=== PATIENT | female | born 1985 | race Caucasian/White ===

== ENCOUNTER 2024-07-13 09:26 | Outpatient (AMB) | payer OTHER, SELFPAY ==
--- NOTE | 2024-07-13 10:02 | MHC.AM.SUB ---
Vital Signs 07/13/24 10:38 BP 100/62 Blood Pressure Location Rt brachial Position Sitting Respiration 16 Pulse 75 Pulse Source Pulse Oximeter Pulse Oximetry (%) 96 Oxygen Delivery Method Room Air Intake Visit Reasons: Intake Allergies No Known Allergies Allergy (Verified 07/13/24 10:18) HPI HPI Intake: Details: Patient presents for intake and evaluation as a walk in Currently on methadone and hoping to transition to buprenorphine Current dose of methadone 90mg Previously on buprenorphine --and transitioned methadone Last opiate use June 01 IVDU cocaine use (smoking) may 27 no alcohol 4 lifetime overdoses longest period in recovery 4 years 2010 suboxone strong family history of addiction opiates at age 21 History PTSD, depression PCP is managing medications Lexapro 20mg QD Wellbutrin 300mg QD Traz 200mg Hydrox 50mg PRN Gabapentin 400mg TID NKDA no providers in place Social -living in [place] at [facility] -limited supports -2 children 5 and 9 yo Medical -Hep C with no VL (cleared) -no BC -PCP in [place] (joanna MUNOZ ) Review of Systems Const Reports as per HPI and Reports no additional complaints Physical Exam Vital Signs: Last Vital Signs Pulse 75 07/13/24 10:38 Resp 16 07/13/24 10:38 BP 100/62 07/13/24 10:38 Pulse Ox 96 07/13/24 10:38 Oxygen Delivery Method Room Air 07/13/24 10:38 Const General: cooperative, healthy appearing, no acute distress and well groomed Nutritional Appearance: average body habitus Orientation/consciousness: patient oriented x3 Limitations: no limitations Skin General skin exam: no rashes or lesions noted Neuro General: patient oriented x3 Results AMB 14 Panel Urine Drug Screen Urine Marijuana (THC) Negative Last Edit by Sindy Archuleta on 07/13/24 10:40 Urine Cocaine Negative Last Edit by Sindy Archuleta on 07/13/24 10:40 Urine Morphine Negative Last Edit by Sindy Archuleta on 07/13/24 10:40 Urine Methamphetamine Negative Last Edit by Sindy Archuleat on 07/13/24 10:40 Urine Amphetamine Negative Last Edit by Sindy Archuleta on 07/13/24 10:40 Urine Benzodiazepine Negative Last Edit by Sindy Archuleta on 07/13/24 10:40 Urine Barbiturates Negative Last Edit by Sindy Archuleta on 07/13/24 10:40 Urine Methadone Positive Last Edit by Sindy Archuleta on 07/13/24 10:40 Urine Buprenorphine Negative Last Edit by Sindy Archuleta on 07/13/24 10:40 Urine Tricyclic Antidepressant Negative Last Edit by Sindy Archuleta on 07/13/24 10:40 Urine MDMA Negative Last Edit by Sindy Archuleta on 07/13/24 10:40 Urine Oxycodone Negative Last Edit by Sindy Archuleta on 07/13/24 10:40 Urine Phencyclidine Negative Last Edit by Sindy Archuleta on 07/13/24 10:40 Urine Propoxyphene Negative Last Edit by Sindy Archuleta on 07/13/24 10:40 AMB Test Urine AMB Test Urine Negative Last Edit by Sindy Archuleta on 07/13/24 10:40 Results Reviewed Results Reviewed: Laboratory Last Values [facility] Negative 07/13/24 10:36 POC Urine Buprenorphine Negative 07/13/24 10:36 POC Urine Morphine Negative 07/13/24 10:36 POC Urine Oxycodone Negative 07/13/24 10:36 POC Urine Methadone Positive 07/13/24 10:36 POC Urine Propoxyphene Negative 07/13/24 10:36 POC Urine Barbiturates Negative 07/13/24 10:36 POC U Tricyclic Antidpr Negative 07/13/24 10:36 POC Urine PCP Negative 07/13/24 10:36 POC Ur Amphetamines Negative 07/13/24 10:36 POC Ur Methamphetamine Negative 07/13/24 10:36 POC Urine MDMA Negative 07/13/24 10:36 POC Ur Benzodiazepine Negative 07/13/24 10:36 POC Urine Cocaine Negative 07/13/24 10:36 POC Ur Marijuana (THC) Negative 07/13/24 10:36 Assessment & Plan Assessment & Plan (1) Opioid use disorder: Code(s): F11.90 - Opioid use, unspecified, uncomplicated Category: Medical Plan: reviewed plan for transition from methadone to buprenorphine provided with written instrucitons she will check in with [facility] and let us know when to send rx labs ordered --need to be completed Orders: Orders Complete Blood Count Auto Diff 07/13/24 F11.90 - Opioid use, unspecified, uncomplicated HIV Ab/Ag 07/13/24 - Opioid use, unspecified, uncomplicated Hepatitis B Profile 07/13/24 - Opioid use, unspecified, uncomplicated Comprehensive Met. Panel 07/13/24 - Opioid use, unspecified, uncomplicated Hepatitis C Antibody Reflex 07/13/24 - Opioid use, unspecified, uncomplicated Hepatitis A IgG 07/13/24 - Opioid use, unspecified, uncomplicated AMB HCG Urine Test 07/13/24 - Opioid use, unspecified, uncomplicated AMB 14 Panel Urine Drug Screen 07/13/24 Z51.81 - Encounter for therapeutic drug level monitoring
[2024-07-13 10:38] VITALS: BP 100/62; PULSE 75; RESP 16; O2SAT 96
== END 2024-07-13 10:31 | disposition home or self-care (01) ==
PROVIDERS: Visit Provider Nurse Practitioner Psychiatric/Mental Health
DX: F11.90 Opioid use, unspecified, uncomplicated (principal)
CPT/HCPCS: 99204

== ENCOUNTER → 2024-07-13 09:26 | Outpatient (BNVA) | payer OTHER, SELFPAY | PROVIDERS: Visit Provider Nurse Practitioner Psychiatric/Mental Health | DX: F11.20 Opioid dependence, uncomplicated (principal) | CPT/HCPCS: 80307; 81025 ==

== ENCOUNTER 2024-07-21 08:57 | Outpatient (REF) | payer OTHER, SELFPAY ==
[2024-07-21 10:56] LABS: MANUAL DIFF FLAG NO
[2024-07-21 11:22] LABS: Basophils Absolute Auto 0.1 X10*3/uL (0.0-0.2); Basophils Percent Auto 0.8 % (0-2); Eosinophils Absolute Auto 0.1 X10*3/uL (0.0-0.4); Eosinophils Percent Auto 0.9 % (0-4); Hematocrit 35.7 % (37.0-47.0); Hemoglobin 11.8 g/dl (12.0-16.0); Imm Gran Abs Auto 0.05 X10*3/uL (0.00-0.03); Imm Gran Pct Auto 0.8 % (0.0-0.4); Lymphocytes Absolute Auto 2.7 X10*3/uL (1.2-4.9); Lymphocytes Percent Auto 40.2 % (20-40); Mean Corpuscular HGB Conc 33.1 g/dl (31.0-35.0); Mean Corpuscular Hemoglobin 29.4 pg (27.0-33.0); Mean Corpuscular Volume 88.8 fL (80.0-98.0); Mean Platelet Volume 8.4 fL (9.4-12.3); Monocytes Absolute Auto 0.7 X10*3/uL (0.1-1.2); Monocytes Percent Auto 10.1 % (2-11); Neutrophils Absolute Auto 3.2 x10*3/uL (2.0-8.3); Neutrophils Percent Auto 47.2 % (45-73); Platelet Count 229 X10*3/uL (160-400); Red Blood Count 4.02 X10*6/uL (4.20-5.50); Red Cell Distribution Width 12.8 % (11.0-16.0); White Blood Count 6.7 X10*3/uL (4.8-10.8)
[2024-07-21 11:38] LABS: Alanine Aminotransferase 30 U/L (0-31); Albumin Level 4.2 g/dL (3.5-5.0); Alkaline Phosphatase 50 U/L (39-117); Anion Gap 11 (12-20); Aspartate Amino Transferase 24 U/L (5-31); Bilirubin Total 0.5 mg/dL (0.0-1.0); Blood Urea Nitrogen 10 mg/dL (9-16); Calcium 9.4 mg/dL (8.4-10.2); Carbon Dioxide 28 mmol/L (22-29); Chloride 106 mmol/L (96-108); Estimated Glomerular Filt Rate > 60; Glucose Random 87 mg/dL (60-115); Potassium 4.8 mmol/L (3.3-5.1); Sodium 140 mmol/L (135-145); Total Protein 7.1 g/dL (6.5-8.0)
[2024-07-21 12:00] LABS: Hepatitis A Antibody IgG REACTIVE (Nonreactive); ~Hepatitis A Antibody IgG 6.92 S/CO (0.00-0.99)
[2024-07-21 12:07] LABS: HBS Num1 3.59 mIU/mL (0-7.99); HBsAGNum1 0.31 S/CO (0.00-0.99); HIV AB/AG Nonreactive (Nonreactive); HIV Num 1 0.23 S/CO (0.00-0.99); Hepatitis B Core Antibody Nonreactive (Nonreactive); Hepatitis B Surface Antigen Negative (Negative); ~HepC Num1 11.56 S/CO (0.00-0.79); ~Hepatitis B Surface Antibody NONREACTIVE (Nonreactive); ~Hepatitis C Antibody Reactive (Nonreactive)
[2024-07-23 10:33] LABS: HCV Log PCR <1.18 NOT DETECTED Log IU/mL (NOT DETECTED); HepC Viral Load <15 NOT DETECTED IU/mL (NOT DETECTED)
== END 2024-07-21 08:58 | disposition home or self-care (01) ==
LOC: HO.LAB 08:57
PROVIDERS: Visit Provider Nurse Practitioner Psychiatric/Mental Health
DX: F11.20 Opioid dependence, uncomplicated (principal); F43.10 Post-traumatic stress disorder, unspecified
CPT/HCPCS: 36415; 80053; 85025; 86704; 86706; 86708; 86803; 87340; 87389; 87522

== ENCOUNTER 2024-07-21 08:57 | Outpatient (AMB) | payer OTHER, SELFPAY ==
--- NOTE | 2024-07-21 09:29 | A.OFFVISCC_ITS ---
Intake Visit Reasons: MAT Office Allergies No Known Allergies Allergy (Verified 07/13/24 10:18) HPI HPI MAT Office: Details: Patient presents for follow up Reports she is on day 5 of transition 2mg BID today tolerating transition without issue will order 8mg films today with plan for up tp 8mg TID once methadone is done Reporting incresae in anxiety sx flashbacks, intrusive thoughts and memories, difficulty falling asleep tearful reviewed medications --open to risperdal trial 1/2-1 tab BID PRN Review of Systems Const Reports as per HPI Physical Exam Const General: cooperative, healthy appearing, anxious and well groomed Nutritional Appearance: average body habitus Orientation/consciousness: patient oriented x3 Limitations: no limitations Neuro General: patient oriented x3 Assessment & Plan Assessment & Plan (1) Opioid use disorder: Code(s): F11.90 - Opioid use, unspecified, uncomplicated Category: Medical Plan: * transition to 8mg films over the weekend * encouraged to call with any issues or concerns (2) Post traumatic stress disorder (PTSD): Code(s): F43.10 - Post-traumatic stress disorder, unspecified Category: Medical Plan: * risperdal 0.5mg take 1/2 to one tab twice a day as needed --side effects, goals of treatment reviewed Medications: New risperidone (Risperdal) take 1/2 -1 tab orally 2 times a day PRN; 10 tabs 0RF anxiety buprenorphine-naloxone 8-2 mg (Suboxone) 1 film buccal TID 42 ea 0RF
== END 2024-07-21 10:37 | disposition home or self-care (01) ==
PROVIDERS: Visit Provider Nurse Practitioner Psychiatric/Mental Health
DX: F11.90 Opioid use, unspecified, uncomplicated (principal); F43.10 Post-traumatic stress disorder, unspecified
CPT/HCPCS: 99214

== ENCOUNTER 2024-07-28 09:20 | Outpatient (AMB) | payer OTHER, SELFPAY ==
--- NOTE | 2024-07-28 09:41 | A.OFFVISCC_ITS ---
Intake Visit Reasons: MAT Office Allergies No Known Allergies Allergy (Verified 07/13/24 10:18) HPI HPI MAT Office: Details: Patient presents for follow up Today is day 3 of full transition to buprenorphine Taking 8mg TID Denies any withdrawal sx during transition Risperidone 1/2 tab during the day made her feel too heavy Is taking it at bedtime --does not feel is helpful either way--will d/c it plans to move to [place] shortly following injection. will connect with providers when there Review of Systems Const Reports as per HPI and Reports no additional complaints Physical Exam Const General: cooperative, healthy appearing, anxious and well groomed Nutritional Appearance: average body habitus Orientation/consciousness: patient oriented x3 Limitations: no limitations Neuro General: patient oriented x3 Assessment & Plan Assessment & Plan (1) Opioid use disorder: Code(s): F11.90 - Opioid use, unspecified, uncomplicated Category: Medical Plan: * continue suboxone 8mg TID * Brixadi ordered * follow up 2 weeks Medications: New buprenorphine ER (Brixadi Monthly) 128 mg (0.36 mL) subcut Q28D 0.36 mL 5RF F11.90 - Opioid use, unspecified, uncomplicated buprenorphine ER (Brixadi Monthly) 128 mg (0.36 mL) subcut Q28D 0.36 mL 5RF F11.90 - Opioid use, unspecified, uncomplicated Discontinued buprenorphine-naloxone 2-0.5 mg (Suboxone) Discontinued Reason: Patient Completed Course 1 film buccal BID 10 ea 0RF risperidone (Risperdal) Discontinued Reason: Patient no longer taking take 1/2 -1 tab orally 2 times a day PRN; 10 tabs 0RF anxiety
== END 2024-07-28 11:15 | disposition home or self-care (01) ==
PROVIDERS: Visit Provider Nurse Practitioner Psychiatric/Mental Health
DX: F11.90 Opioid use, unspecified, uncomplicated (principal)
CPT/HCPCS: 99214

== ENCOUNTER → 2024-07-28 09:20 | Outpatient (BNVA) | payer OTHER, SELFPAY | PROVIDERS: Visit Provider Nurse Practitioner Psychiatric/Mental Health | DX: F11.90 Opioid use, unspecified, uncomplicated (principal) ==

== ENCOUNTER 2024-08-11 09:15 | Outpatient (AMB) | payer OTHER, SELFPAY ==
--- NOTE | 2024-08-11 09:18 | MHC.AM.SUB ---
Intake Visit Reasons: MAT/Brix Injection Allergies No Known Allergies Allergy (Verified 07/13/24 10:18) HPI HPI MAT/Brix Injection: Details: Patient presents for follow up Currently prescribed Suboxone 8mg TID Moving to [place] house [place] Receiving 1st injection today of Brixadi questions answered Review of Systems Const Reports as per HPI and Reports no additional complaints Physical Exam Const General: cooperative, healthy appearing, comfortable and well groomed Nutritional Appearance: average body habitus Office Meds buprenorphine 128 mg/0.36 mL solution,ext.rel.subcutaneous syringe Performing Provider: Delisa Levine CNP Performing Location: [facility] Administered by: Ignacia Bridges RN on 08/11/24 10:00 Dose Route Admin Location Dispensed Lot Number Expiration Date [facility] [employer] 128 mg subcut QUIN 0.36 mL [id number] 07/12/26 [id number] [employer]. Assessment & Plan Assessment & Plan (1) Opioid use disorder: Code(s): F11.90 - Opioid use, unspecified, uncomplicated Category: Medical Plan: 1st injection Brixadi administered today questions answered related to side effects, dosing etc follow up 4 weeks Orders: Orders AMB Buprenorphine Injection - Patient Supplied Today F11.90 - Opioid use, unspecified, uncomplicated
== END 2024-08-11 09:46 | disposition home or self-care (01) ==
PROVIDERS: Visit Provider Nurse Practitioner Psychiatric/Mental Health
DX: F11.90 Opioid use, unspecified, uncomplicated (principal)
CPT/HCPCS: 99213

== ENCOUNTER → 2024-08-11 09:15 | Outpatient (BNVA) | payer OTHER, SELFPAY | PROVIDERS: Visit Provider Nurse Practitioner Psychiatric/Mental Health | DX: F11.90 Opioid use, unspecified, uncomplicated (principal) | CPT/HCPCS: 96372; J0578 ==